=== PATIENT | male | born 1980 | race Caucasian/White ===

== ENCOUNTER 2017-05-29 13:57 | Inpatient (IN) | payer SELFPAY ==
[~2017-05-29] VITALS: Ht 170.2 cm; Wt 104.3 kg
[2017-05-29] VITALS (25 sets, daily range): BP systolic 95–131; BP diastolic 56–77
[2017-05-29] MEDS ORDERED: SODIUM CHLORIDE 0.9% 1,000 ML IV ONE (14:37)
[2017-05-29 15:31] LABS: INR 1.4; PROTHROMBIN TIME 14.3 sec
[2017-05-29 15:33] LABS: MEAN CORPUSCULAR HEMOGLOBIN 20.2 pg (28.0-32.0); PLATELET 106 x1000/uL (130-400); RED CELL DISTRIBUTION WIDTH 25.8 % (11.6-14.6)
[2017-05-29 15:38] LABS: *AMPHETAMINES SCREEN URINE NEGATIVE (NEGATIVE); *BARBITURATES SCREEN URINE NEGATIVE (NEGATIVE); *BENZODIAZEPINES SCREEN URINE NEGATIVE (NEGATIVE); *COCAINE SCREEN URINE NEGATIVE (NEGATIVE); CANNABINOID URINE SCREEN NEGATIVE (NEGATIVE); METHADONE URINE SCREEN NEGATIVE (NEGATIVE); OPIATES URINE SCREEN NEGATIVE (NEGATIVE); PHENCYCLIDINE URINE SCREEN NEGATIVE (NEGATIVE)
[2017-05-29 15:38] LABS: CARBON DIOXIDE 24 mEq/L (21-32); CHLORIDE 94 mEq/L (98-107); ETHANOL BLOOD 41 mg/dL
[2017-05-29 15:43] LABS: HEMATOCRIT. 12.8 % (42.0-52.0); HEMOGLOBIN. 3.8 g/dL (14.0-18.0)
[2017-05-29] MEDS ORDERED: PANTOPRAZOLE SODIUM 40 MG/VIAL IV ONE (16:00)
[2017-05-29] MEDS ORDERED: POTASSIUM CHLORIDE INJ 40 MEQ in DEXT 5% WATER 250 ML IV ONE (16:00)
[2017-05-29] MEDS ORDERED: ONDANSETRON HCL 4MG/2ML VIAL IV PRN (16:15)
[2017-05-29] MEDS ORDERED: OCTREOTIDE 1,000 MCG in SODIUM CHLORIDE 0.9% 100 ML IV ONE (16:15)
[2017-05-29] MEDS ORDERED: PANTOPRAZOLE 80 MG in SODIUM CHLORIDE 0.9% 100 ML IV SCH (16:15)
[2017-05-29] MEDS ORDERED: LORAZEPAM 2MG/ML CPJ IV PRN (16:15)
[2017-05-29 17:51] LABS: PLATELET ESTIMATE SLIGHTLY DECREASED
[2017-05-29 18:27] LABS: TOTAL IRON BINDING CAPACITY 297 ug/dL (250-450)
[2017-05-29] MEDS ORDERED: KCL 20MEQ/100ML PREMIX 100 ML IV NR (20:00)
[2017-05-29] MEDS ORDERED: MAGNESIUM 2 G PREMIX 50 ML IV NR (20:00)
[2017-05-29] MEDS: SODIUM CHLORIDE 0.9% 1,000 ML IV SCH (20:21)
[2017-05-29] MEDS: PANTOPRAZOLE SODIUM 40 MG/VIAL IV SCH (20:21)
[2017-05-29] MEDS ORDERED: MVI, ADULT NO.1 10 ML, FOLIC ACID 1 MG, THIAMINE HCL 100 MG in SODIUM CHLORIDE 0.9% 1,0... IV NR ×4 (21:00)
[2017-05-29] MEDS: ACETAMINOPHEN 325MG TABLET PO PRN (22:11)
[2017-05-30] VITALS (67 sets, daily range): BP systolic 105–147; BP diastolic 50–111
[2017-05-30 06:28] LABS: HEMATOCRIT. 21.5 % (42.0-52.0); MEAN CORPUSCULAR HEMOGLOBIN 23.3 pg (28.0-32.0); MEAN CORPUSCULAR VOLUME 72.5 fL (80.0-94.0); MEAN PLATELET VOLUME 8.9 fl (7.4-10.4); PLATELET 111 x1000/uL (130-400); RED BLOOD CELL COUNT 2.96 mill/uL (4.7-6.1); RED CELL DISTRIBUTION WIDTH 25.2 % (11.6-14.6)
[2017-05-30 07:21] LABS: HEMOGLOBIN. 6.9 g/dL (14.0-18.0)
[2017-05-30 07:28] LABS: CHLORIDE 105 mEq/L (98-107)
[2017-05-30 07:33] LABS: CARBON DIOXIDE 25 mEq/L (21-32); PHOSPHORUS 2.7 mg/dL (2.5-4.9)
[2017-05-30] MEDS: PANTOPRAZOLE SODIUM 40 MG/VIAL IV SCH (07:59)
[2017-05-30] MEDS: ACETAMINOPHEN 325MG TABLET PO PRN ×2 (08:29→22:52)
[2017-05-30 09:37] LABS: PLATELET ESTIMATE SLIGHTLY DECREASED
[2017-05-30] MEDS: SODIUM CHLORIDE 0.9% 1,000 ML IV SCH (11:20)
[2017-05-30] MEDS ORDERED: MIDAZOLAM HCL 5 MG/5 ML VIAL ONE (11:29)
[2017-05-30] MEDS ORDERED: FENTANYL CITRATE/PF 50MCG/ML 2ML VIAL ONE (11:29)
[2017-05-30] MEDS ORDERED: FENTANYL CITRATE/PF 50MCG/ML 2ML VIAL IV ONE (12:12)
[2017-05-30] MEDS: IRON SUCROSE COMPLEX 100 MG/5 ML ML IV SCH (13:34)
[2017-05-30] MEDS ORDERED: MIDAZOLAM HCL 5 MG/5 ML VIAL IV ONE (13:45)
[2017-05-30 16:07] LABS: HEMATOCRIT 24.3 % (42.0-52.0); HEMOGLOBIN 7.6 g/dL (14.0-18.0); MEAN CORPUSCULAR HEMOGLOBIN 23.2 pg (28.0-32.0); PLATELET 126 x1000/uL (130-400); RED BLOOD CELL COUNT 3.28 mill/uL (4.7-6.1); RED CELL DISTRIBUTION WIDTH 24.6 % (11.6-14.6)
[2017-05-30] MEDS ORDERED: TRAMADOL 50MG TABLET PO PRN (17:30)
[2017-05-31] VITALS (18 sets, daily range): BP systolic 125–137; BP diastolic 70–88
[2017-05-31 06:22] LABS: HEMOGLOBIN. 7.3 g/dL (14.0-18.0); MEAN CORPUSCULAR HEMOGLOBIN 23.4 pg (28.0-32.0); PLATELET 130 x1000/uL (130-400); RED BLOOD CELL COUNT 3.11 mill/uL (4.7-6.1)
[2017-05-31 06:57] LABS: HEPATITIS B SURFACE ANTIGEN NEGATIVE
[2017-05-31 07:15] LABS: CARBON DIOXIDE 26 mEq/L (21-32); CHLORIDE 104 mEq/L (98-107)
[2017-05-31 07:25] LABS: HEPATITIS B CORE AB IGM NEGATIVE
[2017-05-31 07:27] LABS: HEPATITIS A AB IGM NEGATIVE (NEGATIVE)
[2017-05-31] MEDS: IRON SUCROSE COMPLEX 100 MG/5 ML ML IV SCH (09:53)
[2017-05-31] MEDS: PANTOPRAZOLE SODIUM 40 MG/VIAL IV SCH (09:53)
[2017-05-31 11:46] LABS: NUCLEATED RED BLOOD CELLS 2 /100 WBC
[2017-05-31 11:47] LABS: PLATELET ESTIMATE NORMAL
[2017-05-31] MEDS: MULTIVITAMINS,THER W-MINERALS TABLET PO SCH (20:44)
[2017-05-31] MEDS: THIAMINE HCL 100MG TABLET PO SCH (20:44)
[2017-06-01] VITALS: BP 132/94
[2017-06-01 04:00] VITALS: BP 119/85
[2017-06-01 05:39] LABS: BASOPHILS % 2.5 % (0.0-2.0); EOSINOPHILS % 3.3 % (0.0-5.0); LYMPHOCYTES % 14.6 % (20.0-50.0); MEAN CORPUSCULAR HEMOGLOBIN 24.1 pg (28.0-32.0); MEAN CORPUSCULAR VOLUME 76.9 fL (80.0-94.0); MONOCYTES % 17.6 % (2.0-8.0); PLATELET 146 x1000/uL (130-400); RED CELL DISTRIBUTION WIDTH 24.1 % (11.6-14.6)
[2017-06-01 06:29] LABS: HEMATOCRIT 28.4 % (42.0-52.0); HEMATOCRIT. 28.4 % (42.0-52.0); HEMOGLOBIN 8.9 g/dL (14.0-18.0); HEMOGLOBIN. 8.9 g/dL (14.0-18.0)
[2017-06-01 08:00] VITALS: BP 120/73
[2017-06-01] MEDS: IRON SUCROSE COMPLEX 100 MG/5 ML ML IV SCH (09:11)
[2017-06-01] MEDS: PANTOPRAZOLE SODIUM 40 MG/VIAL IV SCH (09:11)
[2017-06-01] MEDS: ASCORBIC ACID 250 MG TABLET PO SCH (09:11)
[2017-06-01] MEDS: MULTIVITAMINS,THER W-MINERALS TABLET PO SCH (09:12)
[2017-06-01] MEDS: THIAMINE HCL 100MG TABLET PO SCH (09:12)
[2017-06-01] MEDS: ZINC SULFATE 220 MG ( 50 ) CAPSULE PO SCH (09:12)
[2017-06-01 12:00] VITALS: BP 126/81
[2017-06-01] MEDS ORDERED: POTASSIUM CHLORIDE 20MEQ TABLET SR PO SCH (14:00)
[2017-06-01] MEDS ORDERED: FUROSEMIDE 40MG TABLET PO SCH (14:00)
[2017-06-01 16:00] VITALS: BP 136/86
[2017-06-01] MEDS: FUROSEMIDE 40MG/4ML VIAL IVP SCH (17:22)
[2017-06-01 20:00] VITALS: BP 123/78
[2017-06-02] VITALS: BP 126/76
[2017-06-02 04:00] VITALS: BP 129/79
[2017-06-02] MEDS: FUROSEMIDE 40MG/4ML VIAL IVP SCH ×2 (05:17→18:00)
[2017-06-02 06:23] LABS: CARBON DIOXIDE 27 mEq/L (21-32); CHLORIDE 104 mEq/L (98-107)
[2017-06-02 08:00] VITALS: BP 113/80
[2017-06-02] MEDS: PANTOPRAZOLE SODIUM 40 MG/VIAL IV SCH (08:48)
[2017-06-02] MEDS: THIAMINE HCL 100MG TABLET PO SCH (08:48)
[2017-06-02] MEDS: MULTIVITAMINS,THER W-MINERALS TABLET PO SCH (08:48)
[2017-06-02] MEDS: ASCORBIC ACID 250 MG TABLET PO SCH (08:48)
[2017-06-02] MEDS: ZINC SULFATE 220 MG ( 50 ) CAPSULE PO SCH (08:48)
[2017-06-02] MEDS ORDERED: SPIRONOLACTONE 25MG TABLET PO SCH (09:00)
[2017-06-02 12:00] VITALS: BP 132/87
[2017-06-02 16:00] VITALS: BP 105/83
[2017-06-02 17:26] VITALS: BP 105/83
== END 2017-06-02 19:10 | disposition home or self-care (01) | DRG 253 ==
LOC: ER 14:12 → MICUNO 16:07 → ENRESERV 16:15 → 7WST 05-30 21:25
PROVIDERS: ADMIT Internal Medicine; ATTEND Internal Medicine
PROC: 30233N1 Transfusion of Nonautologous Red Blood Cells into Peripheral Vein, Percutaneous Approach (ICD-10-PCS; 2017-05-29)
PROC: 0DJ68ZZ Inspection of Stomach, Via Natural or Artificial Opening Endoscopic (ICD-10-PCS; principal; 2017-05-30 12:00)
DX: K92.0 Hematemesis (principal); E43 Unspecified severe protein-calorie malnutrition; K85.20 Alcohol induced acute pancreatitis without necrosis or infection; K76.6 Portal hypertension; D69.59 Other secondary thrombocytopenia; E87.1 Hypo-osmolality and hyponatremia; D50.9 Iron deficiency anemia, unspecified; K92.2 Gastrointestinal hemorrhage, unspecified; K70.30 Alcoholic cirrhosis of liver without ascites; D75.89 Other specified diseases of blood and blood-forming organs; E87.6 Hypokalemia; F17.200 Nicotine dependence, unspecified, uncomplicated; K31.89 Other diseases of stomach and duodenum; Z59.0 Homelessness; Z68.36 Body mass index [BMI] 36.0-36.9, adult; F10.10 Alcohol abuse, uncomplicated; B19.20 Unspecified viral hepatitis C without hepatic coma; S81.801A Unspecified open wound, right lower leg, initial encounter; Y90.9 Presence of alcohol in blood, level not specified
CPT/HCPCS: 36415; 36430; 71010; 74181; 76700; 80048; 80053; 80076; 80305; 82105; 82150; 82248; 83540; 83550; 83690; 83735; 84100; 85025; 85027; 85610; 86705; 86709; 86803; 86850; 86900; 86920; 87340; 87536; 93005; 93970; 96361; 96365; 96375; 99291; C9113; G0482; J1940; J2250; J2354; J3010; J3411; J3475; J3480; J3490; J7030; J7050; J7060; P9016